=== PATIENT | female | born 1980 | race Caucasian/White ===

== ENCOUNTER 2017-02-17 05:24 | Emergency (ER) | payer MEDICAID ==
[~2017-02-17] VITALS: Ht 165.1 cm; Wt 87.5 kg
[~2017-02-17 05:24] MED LIST: ALBU6.7H INH; BENZ1LOZ PO; CEPH500C5 PO; HYDR50CA5 PO; METH4TAB3 PO; PHEN-716 PO; PHEN-873 PO; PRED50TA PO; VENL37.589 PO
[2017-02-17] MEDS ORDERED: proCHLORperazine 10 MG/2 ml inj IM ONE (06:10)
[2017-02-17] MEDS ORDERED: ketorolac trometh inj. 60 MG/2 ML VIAL IM ONE (06:10)
[2017-02-17 06:52] VITALS: BP 122/93
== END 2017-02-17 06:53 | disposition home or self-care (01) ==
LOC: ER 05:25
DX: R51 Headache (principal); R42 Dizziness and giddiness; R11.0 Nausea; Z88.6 Allergy status to analgesic agent
CPT/HCPCS: 96372; 99284; J0780; J1885

== ENCOUNTER 2017-05-07 02:55 | Emergency (ER) | payer MEDICAID ==
[~2017-05-07] VITALS: Ht 165.1 cm; Wt 81.0 kg
[2017-05-07 02:58] VITALS: BP 143/89
[2017-05-07] MEDS ORDERED: NEOM10DR45 OT (05:41)
== END 2017-05-07 05:55 | disposition home or self-care (01) ==
LOC: ER 02:56
DX: H60.91 Unspecified otitis externa, right ear (principal); Z90.49 Acquired absence of other specified parts of digestive tract; Z88.5 Allergy status to narcotic agent; Z88.8 Allergy status to other drugs, medicaments and biological substances; Z79.899 Other long term (current) drug therapy
CPT/HCPCS: 99283

== ENCOUNTER 2017-07-04 10:58 | Emergency (ER) | payer MEDICAID ==
[~2017-07-04] VITALS: Ht 165.1 cm; Wt 85.0 kg
[2017-07-04] MEDS ORDERED: piperacillin/tazo 3.375gm/50ml 50 ML IV ONE (12:35)
[2017-07-04 13:51] LABS: BASOPHILS % (AUTO) 0.5 % (0-1); EOSINOPHILS # (AUTO) 0.4 X10'3 (0-0.9); EOSINOPHILS % (AUTO) 4.7 % (0-6); HEMATOCRIT 35.5 % (35.0-45.0); HEMOGLOBIN 11.6 g/dl (12.0-16.0); LYMPHOCYTES # (AUTO) 0.9 X10'3 (1.1-4.8); LYMPHOCYTES % (AUTO) 11.8 % (21-51); MEAN CORPUSCULAR HEMOGLOBIN 27.8 PG (27.0-31.0); MEAN CORPUSCULAR HGB CONC 32.6 % (33.0-36.5); MEAN PLATELET VOLUME 7.9 FL (7.4-10.4); MONOCYTES # (AUTO) 0.6 X10'3 (0-0.9); MONOCYTES % (AUTO) 7.6 % (2-12); NEUTROPHILS # (AUTO) 5.9 X10'3 (1.8-7.7); NEUTROPHILS % (AUTO) 75.4 % (42-75); PLATELET COUNT 204 X10'3 (140-440); RED BLOOD COUNT 4.18 X10'6 (4.20-5.60); RED CELL DISTRIBUTION WIDTH 14.7 % (11.5-14.5); WHITE BLOOD COUNT 7.9 X10'3 (4.5-11.0)
[2017-07-04 14:18] LABS: ALANINE AMINOTRANSFERASE 19 U/L (12-78); ALBUMIN 3.1 G/DL (3.4-5.0); ALBUMIN/GLOBULIN RATIO 0.9 (1.1-1.5); ALKALINE PHOSPHATASE 88 IU/L (46-116); ANION GAP 7 (8-16); ASPARTATE AMINO TRANSFERASE 9 U/L (10-37); BILIRUBIN,TOTAL 0.3 MG/DL (0.1-1.0); BLOOD UREA NITROGEN 9 MG/DL (7-18); BUN/CREATININE RATIO 13.2 (6.6-38.0); CALCIUM 8.8 MG/DL (8.5-10.1); CHLORIDE 102 MMOL/L (99-107); CREATININE 0.68 MG/DL (0.40-0.90); GLUCOSE 94 MG/DL (70-104); POTASSIUM 3.7 MMOL/L (3.5-5.1); SODIUM 138 MMOL/L (135-145); TOTAL CARBON DIOXIDE 29.1 MMOL/L (24-32); TOTAL PROTEIN 6.6 G/DL (6.4-8.2); eGFR > 90 ML/MIN
[2017-07-04 15:37] VITALS: BP 119/63
== END 2017-07-04 15:30 | disposition short-term general hospital (02) ==
LOC: ER 10:59
DX: L02.01 Cutaneous abscess of face (principal); Z86.14 Personal history of Methicillin resistant Staphylococcus aureus infection; Z90.49 Acquired absence of other specified parts of digestive tract; Z88.5 Allergy status to narcotic agent; Z88.6 Allergy status to analgesic agent; Z79.899 Other long term (current) drug therapy
CPT/HCPCS: 36415; 80053; 83605; 84145; 85025; 87040; 96365; 99285; J2543

== ENCOUNTER 2017-10-03 19:46 | Emergency (ER) | payer MEDICAID ==
[~2017-10-03] VITALS: Ht 165.1 cm; Wt 81.8 kg
[2017-10-03] MEDS ORDERED: normal saline 1000ml 1,000 ML IV STA (20:54)
[2017-10-03] MEDS ORDERED: ondansetron/PF 4mg/2ml inj IV STA (20:54)
[2017-10-03 21:05] LABS: BASOPHILS % (AUTO) 0.3 % (0-1); EOSINOPHILS # (AUTO) 0.3 X10'3 (0-0.9); EOSINOPHILS % (AUTO) 4.7 % (0-6); HEMATOCRIT 42.8 % (35.0-45.0); HEMOGLOBIN 14.4 g/dl (12.0-16.0); LYMPHOCYTES # (AUTO) 1.5 X10'3 (1.1-4.8); LYMPHOCYTES % (AUTO) 24.2 % (21-51); MEAN CORPUSCULAR HEMOGLOBIN 28.3 PG (27.0-31.0); MEAN CORPUSCULAR HGB CONC 33.7 % (33.0-36.5); MEAN CORPUSCULAR VOLUME 84.1 FL (78-98); MEAN PLATELET VOLUME 8.5 FL (7.4-10.4); MONOCYTES # (AUTO) 0.7 X10'3 (0-0.9); MONOCYTES % (AUTO) 11.5 % (2-12); NEUTROPHILS # (AUTO) 3.8 X10'3 (1.8-7.7); NEUTROPHILS % (AUTO) 59.3 % (42-75); PLATELET COUNT 227 X10'3 (140-440); RED BLOOD COUNT 5.09 X10'6 (4.20-5.60); RED CELL DISTRIBUTION WIDTH 14.5 % (11.5-14.5); WHITE BLOOD COUNT 6.4 X10'3 (4.5-11.0)
[2017-10-03 21:15] LABS: INR 1.1 INR; PROTHROMBIN TIME 10.9 SECONDS (9.0-12.0)
[2017-10-03] MEDS ORDERED: normal saline 1000ml 1,000 ML IV ONE (21:20)
[2017-10-03 21:26] LABS: ALANINE AMINOTRANSFERASE 24 U/L (12-78); ALBUMIN 3.4 G/DL (3.4-5.0); ALKALINE PHOSPHATASE 103 IU/L (46-116); ANION GAP 5 (8-16); ASPARTATE AMINO TRANSFERASE 12 U/L (10-37); BILIRUBIN,TOTAL 0.4 MG/DL (0.1-1.0); BLOOD UREA NITROGEN 9 MG/DL (7-18); BUN/CREATININE RATIO 9.1 (6.6-38.0); CALCIUM 9.1 MG/DL (8.5-10.1); CHLORIDE 102 MMOL/L (99-107); CREATININE 0.99 MG/DL (0.40-0.90); GLUCOSE 108 MG/DL (70-104); POTASSIUM 3.9 MMOL/L (3.5-5.1); SODIUM 137 MMOL/L (135-145); TOTAL CARBON DIOXIDE 29.7 MMOL/L (24-32); TOTAL PROTEIN 6.9 G/DL (6.4-8.2); eGFR 63 ML/MIN
[2017-10-03] MEDS ORDERED: ondansetron/PF 4mg/2ml inj IV ONE (22:20)
[2017-10-03 22:37] LABS: URINE HCG NEGATIVE (NEG)
[2017-10-03 22:42] LABS: CLARITY,URINE SLIGHTLY CLOUDY (Clear); COLOR,URINE AMBER (Yellow); GLUCOSE, URINE NEGATIVE (Neg); KETONES,URINE NEGATIVE (Neg); LEUKOCYTE ESTERASE ,URINE NEGATIVE (Neg); NITRITES, URINE NEGATIVE (Neg); OCCULT BLOOD,URINE SMALL (Neg); PROTEIN,URINE TRACE mg/dl (Neg); UROBILINOGEN,URINE 0.2 E.U/dL (0.2-1.0)
[2017-10-03 22:46] LABS: UA COLLECTION TYPE CLN CATCH MIDSTREAM
[2017-10-03 22:51] LABS: WBC,URINE 0-4 /HPF (0-4)
[2017-10-03 22:52] LABS: BACTERIA,URINE FEW /HPF (Neg); CAL OXALATE CRYSTALS 1+ /HPF (NEGATIVE); MUCUS STRANDS MANY /LPF (Neg); SQUAMOUS EPITHELIAL CELL,UR FEW /LPF (FEW)
[2017-10-04 01:18] VITALS: BP 108/66
== END 2017-10-04 01:19 | disposition home or self-care (01) ==
LOC: ER 19:47
DX: K52.9 Noninfective gastroenteritis and colitis, unspecified (principal); Z90.49 Acquired absence of other specified parts of digestive tract; Z98.890 Other specified postprocedural states; Z79.899 Other long term (current) drug therapy; Z88.6 Allergy status to analgesic agent; Z88.5 Allergy status to narcotic agent
CPT/HCPCS: 36415; 74176; 80053; 81001; 81025; 85025; 85610; 96361; 96374; 96376; 99285; J2405; J7030

== ENCOUNTER 2019-11-20 12:06 | Emergency (ER) | payer MEDICAID ==
[~2019-11-20] VITALS: Ht 167.6 cm; Wt 97.0 kg
[~2019-11-20 12:06] MED LIST changes: -ALBU6.7H INH; +ALBU6.7H9 INH; -CEPH500C5 PO; +PHEN-786 PO; -PHEN-873 PO
[2019-11-20 12:17] VITALS: BP 133/90
[2019-11-20] MEDS ORDERED: ketorolac trometh inj. 60 MG/2 ML VIAL IM ONE (12:20)
[2019-11-20] MEDS ORDERED: HYDROcodone/acetaminophen 10/325mg tab PO ONE (13:50)
[2019-11-20] MEDS ORDERED: HYDR-4353 PO (13:54)
== END 2019-11-20 14:36 | disposition home or self-care (01) ==
LOC: ER 12:07
DX: S89.81XA Other specified injuries of right lower leg, initial encounter (principal); M25.561 Pain in right knee; F32.9 Major depressive disorder, single episode, unspecified; Z86.14 Personal history of Methicillin resistant Staphylococcus aureus infection; Z90.49 Acquired absence of other specified parts of digestive tract; Z98.890 Other specified postprocedural states; Z72.89 Other problems related to lifestyle; Z88.5 Allergy status to narcotic agent; Z88.8 Allergy status to other drugs, medicaments and biological substances; Z79.899 Other long term (current) drug therapy; X58.XXXA Exposure to other specified factors, initial encounter; Y93.89 Activity, other specified; Y92.89 Other specified places as the place of occurrence of the external cause; Y99.8 Other external cause status
CPT/HCPCS: 29505; 73564; 96372; 99283; J1885

== ENCOUNTER 2020-05-06 20:10 | Emergency (ER) | payer MEDICAID ==
[~2020-05-06] VITALS: Ht 165.1 cm; Wt 104.5 kg
--- NOTE | 2020-05-06 21:26 | NUR ---
Dr. Hickey at bedside examining patient. Patient denies drainage to her face and is unsure how this occured.
[2020-05-06 21:33] VITALS: BP 110/77
[2020-05-06] MEDS ORDERED: SULF1TAB49 PO (21:39)
[2020-05-06] MEDS ORDERED: sulfamethoxazole/trimethoprim DS (800/160mg) tablet PO ONE (22:00)
== END 2020-05-06 22:07 | disposition home or self-care (01) ==
LOC: ER 20:11
DX: L03.211 Cellulitis of face (principal); F32.9 Major depressive disorder, single episode, unspecified; Z86.14 Personal history of Methicillin resistant Staphylococcus aureus infection; Z90.49 Acquired absence of other specified parts of digestive tract; Z72.89 Other problems related to lifestyle; Z98.890 Other specified postprocedural states; Z88.5 Allergy status to narcotic agent; Z79.899 Other long term (current) drug therapy
CPT/HCPCS: 99283

== ENCOUNTER 2025-01-07 14:32 | Inpatient (IN) | payer MEDICAID, OTHER ==
[~2025-01-07] VITALS: Ht 165.1 cm; Wt 99.8 kg
[~2025-01-07 14:32] MED LIST changes: +ALBU6.7H14 INH; -ALBU6.7H9 INH
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
[2025-01-07] MEDS: CefTRIAXone/D5W-Rocephin 1gm 50 ML IV ONE (15:07)
[2025-01-07 15:11] LABS: MEAN PLATELET VOLUME 7.9 FL (7.4-10.4); RED CELL DISTRIBUTION WIDTH 14.0 % (11.5-14.5)
[2025-01-07 15:22] LABS: CREATININE 1.13 MG/DL (0.40-0.90); TOTAL CARBON DIOXIDE 27.1 MMOL/L (24-32); eCRCL 57 ML/MIN; eGFR 52 ML/MIN
--- NOTE | 2025-01-07 15:22 | RADIOLOGY REPORT ---
EXAM: DI FINGER(S) INDICATION: Finger Pain TECHNIQUE: 3 views of the left fingers COMPARISON: None FINDINGS/IMPRESSION: Percutaneous pin along the 1st ray. Persistent visualization of fracture plane. Anatomic alignment. Surrounding soft tissue swelling.
[2025-01-07] MEDS: VANCOMYCIN/H2O 1.5g/300mL PB 300 ML IV ONE (15:48)
[2025-01-07] MEDS ORDERED: magnesium hydroxide 30ml (MOM) UD suspension PO PRN (16:45)
[2025-01-07] MEDS ORDERED: ondansetron/PF 4mg/2ml inj IV PRN (16:45)
[2025-01-07] MEDS ORDERED: magnesium sulf-water 4G/100mL 100 ML IV PRN (16:45)
[2025-01-07] MEDS ORDERED: mag hydrox/Alum hydrox/simeth 30ml oral suspension PO PRN (16:45)
[2025-01-07] MEDS ORDERED: potassium Cl 20 mEq SR tablet PO PRN ×2 (16:45)
[2025-01-07] MEDS ORDERED: magnesium sulf-water 2g/50mL 50 ML IV PRN (16:45)
[2025-01-07] MEDS ORDERED: potassium Cl 40MEQ/1/2NS 520ml 520 ML IV PRN (16:45)
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
[2025-01-07] MEDS ORDERED: HYDROcodone/acetaminophen 5mg/325mg tablet PO PRN (17:30)
[2025-01-07] MEDS ORDERED: HYDROcodone/acetaminophen 10/325mg tab PO PRN (17:30)
[2025-01-07] MEDS: K and/or MAG REPLACEMENT MC SCH (20:00)
[2025-01-07 20:05] VITALS: BP 157/81; PULSE 58; RESP 18; TEMP 98; O2SAT 99
[2025-01-07] MEDS ORDERED: HYDROmorphone inj. 0.5 MG/0.5 ML DISP.SYRIN IV PRN (20:21)
[2025-01-07 20:30] VITALS: RESP 18; O2SAT 99
--- NOTE | 2025-01-07 21:00 | RADIOLOGY REPORT ---
EXAM: MR MRI UPPER EXTREMITY LEFT INDICATION: swelling of the left thumb with prior orif TECHNIQUE: Multiplanar, multisequence imaging of the left thumb without contrast COMPARISON: DI FINGER(S) on DOS: 01/07/25 FINDINGS: BONES: Significantly limited evaluation secondary to susceptibility artifact however in regards to the clinical question, no definitive secondary imaging findings such as significant surrounding subcutaneous adipose tissue edema, abscess or other definitive MR imaging features of osteomyelitis. Suspected surrounding subcutaneous adipose tissue edema. MUSCLES: Normal signal intensity and morphology. TENDONS: Limited evaluation LIGAMENTS: Limited evaluation JOINT SPACES: No joint effusion. OTHER: None. IMPRESSION: 1. No definitive MR evidence of osteomyelitis allowing for significant limitation from susceptibility artifact. 2. Recommend correlation with ESR/CRP. 3. No visualized abscess or other secondary imaging features of osteomyelitis
[2025-01-07] MEDS: docusate sod 100mg capsule PO SCH (21:31)
[2025-01-07] MEDS: normal saline 1000ml 1,000 ML IV SCH (21:32)
[2025-01-07 22:00] VITALS: BP 147/93; PULSE 72; RESP 18; TEMP 98.7; O2SAT 96
[2025-01-08] MEDS: piperacillin/tazo 4.5gm/100ml 100 ML IV SCH (00:16)
[2025-01-08] MEDS: vancomycin/NS 1 GM ADD-VANTAGE 250 ML IV SCH (03:24)
[2025-01-08 05:00] VITALS: BP 130/84; PULSE 65; RESP 16; TEMP 98.1; O2SAT 98
[2025-01-08 06:26] LABS: MEAN PLATELET VOLUME 8.1 FL (7.4-10.4); RED CELL DISTRIBUTION WIDTH 13.8 % (11.5-14.5)
[2025-01-08 06:39] LABS: CREATININE 0.91 MG/DL (0.40-0.90); TOTAL CARBON DIOXIDE 28.2 MMOL/L (24-32); eCRCL 70 ML/MIN; eGFR 67 ML/MIN
[2025-01-08 09:26] VITALS: RESP 16; O2SAT 98
[2025-01-08 10:00] VITALS: BP 122/78; PULSE 66; RESP 18; TEMP 97.9; O2SAT 97
[2025-01-08] MEDS ORDERED: LACT1CAP74 PO (12:11)
[2025-01-08] MEDS ORDERED: AMOX-117 PO (12:11)
--- NOTE | 2025-01-08 12:19 | CONSULTATION REPORT ---
History of Present Illness Providers to CC ~ Reason for Admit\Admit Dx: Left thumb swelling with prior pinning Refering MD: JUDITH History of Present Illness Orthopedic consultation for 01/08/2025. History of present illness: 44-year-old female who had undergone an percutaneous pinning of her left thumb for a thumb tuft fracture by Dr. Gopal ayoub at [facility]. Her surgery date she stated was in October of the year. She has noticed significant swelling of the past several days and was admitted through the emergency room for infection involving his thumb. Workup included a x-ray as well as an MRI study she was placed on IV antibiotics upon admission. On today's exam of the patient states that she feels somewhat better having less pain and no active drainage. Examination: Orthopedic examination shows some mild swelling involving the distal phalanx of the thumb with a nail deformity from the crush injury that she sustained. There was no active drainage or evidence of the purulent discharge. She has no motion of the interphalangeal joint of the thumb secondary to the pin placement. There was no lymphangitis. There was no involvement of the metacarpal phalangeal joint. X-rays: Show a of the pin placement with a comminuted fracture of the tuft that has remained on united. There was no evidence of osteo myelitis osteomyelitis on x-ray. The pin crosses through the anterior phalangeal joint. MRI study reveals no evidence of osteomyelitis or tenosynovitis. Labs: Normal white blood count sed rate three Assessment: Cellulitis left thumb responding to conservative treatment with intravenous antibiotics. Retained hardware. Plan: This patient has agreed to continue oral antibiotic therapy and a follow- up appointment within the next 1-2 weeks. She has also agreed to follow-up in the emergency room if her symptoms progress or fail to improve. Ultimately once the infection has been controlled or cleared then the intramedullary pin needs to be removed from a surgical standpoint . Failure of control the infection with demand more aggressive treatment in the form of decompression of the thumb and removal of the pin. Optimal treatment would be for her to follow up with the orthopedic surgeon who performed the surgical procedure if this is unable to be in completed then a follow up with my office within the next 10-14 days. Thank you for the consultation. Plan: Allergies: Coded Allergies: vancomycin (Verified Allergy, Mild, severe itching, 01/08/25) codeine (Unverified Adverse Reaction, Unknown, GI UPSET, 01/07/25) oxycodone (Unverified Adverse Reaction, Unknown, GI UPSET, 01/07/25) Home Medications Home Medications Active Culturelle (Lactobacillus Rhamnosus GG) 15 Billion Cell Cap.sprink 1 Cap PO DAILY 30 Days Augmentin 875-125 Tablet (Amoxicillin/Clavulanate Potassium) 1 Each Tablet 1 Tab PO Q12H 7 Days Past Family History Family History: Patient reports no known family medical history. Physical Exam Last Vital Signs Recorded: Temperature: 98.1, Source: Temporal, Heart Rate: 65, Respiratory Rate: 16, BP: 130/84, Pulse Oximetry: 98, Weight: 99.800 General Appearance: alert, WD/WN, moderate distress EENT: PERRL/EOMI Neck: normal inspection Respiratory: no respiratory distress Back: normal inspection Neurologic: oriented x4 Psychiatric: normal mood/affect Results Diagram Lab Result Diagram: 01/08/25 0541 01/08/25 0541 CHERYL CAMPBELL MD Jan 08, 2025 12:19
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
== END 2025-01-08 13:30 | disposition home or self-care (01) | DRG 602 ==
LOC: ER 14:32 → ED HOLD 16:50 → SUR 3N 20:05
PROVIDERS: ADMIT Family Medicine; ATTEND Family Medicine
DX: L03.012 Cellulitis of left finger (principal); N17.0 Acute kidney failure with tubular necrosis; L02.512 Cutaneous abscess of left hand; F32.A Depression, unspecified; F15.10 Other stimulant abuse, uncomplicated; Z88.5 Allergy status to narcotic agent; Z79.899 Other long term (current) drug therapy; Z90.49 Acquired absence of other specified parts of digestive tract; Z88.1 Allergy status to other antibiotic agents
CPT/HCPCS: 36415; 73140; 73221; 80048; 83735; 85025; 85651; 86140; 87081; 96365; 99285; G0378; J0696; J1171; J2543; J3375; J7030